=== PATIENT | female | born 1970 | race Hispanic/Latino ===

== ENCOUNTER 2022-08-10 10:31 | Day surgery (SDC) | payer OTHER ==
[2022-08-10] VITALS (7 sets, daily range): BP systolic 104–121; BP diastolic 58–76
[~2022-08-10] VITALS: Ht 167.6 cm; Wt 124.7 kg
[~2022-08-10 10:31] MED LIST: CYCL5TAB PO; GLIP5TAB11 PO; LACT10SO95 PO; LORA10TA7 PO; OMEP20CA12 PO; ONDA4TAB10 PO; PROP10TA10 PO; SUCR1TAB2 PO; TRAM50TA4 PO
[2022-08-10] MEDS ORDERED: 0.9%NACL 1000ML 1,000 ML IV ONE (10:35)
[2022-08-10 10:52] LABS: HEMATOCRIT 40.7 % (36-48); MEAN CORPUSCULAR HEMOGLOBIN 28.6 pg (27.0-33.0); MEAN CORPUSCULAR HGB CONC 32.4 g/dL (32.0-36.0); MEAN CORPUSCULAR VOLUME 88.3 fL (79-99); PLATELET COUNT (AUTO) 59 K/uL (130-400); RED BLOOD CELL COUNT(AUTO) 4.61 MIL/uL (4.00-5.50); RED CELL DISTRIBUTION WIDTH 14.8 % (11.0-15.5); WHITE BLOOD COUNT (AUTO) 2.9 K/uL (4.8-10.8)
[2022-08-10 11:03] LABS: ALBUMIN 3.5 g/dL (3.5-5.0); CREATININE 0.6 mg/dL (0.5-1.5); POTASSIUM 3.8 mmol/L (3.5-5.1); TOTAL PROTEIN, SERUM 6.7 g/dL (6.0-8.3)
[2022-08-10 11:23] LABS: EOSINOPHILS % (MANUAL) 3 % (1-6); LYMPHOCYTES % (MANUAL) 34 % (22-44); MAN.DIFF COMMENT-IMPRESSION MANUAL DIFFERENTIAL; MONOCYTES % (MANUAL) 7 % (2-9); PLATELET MORPHOLOGY COMMENT DECREASED; SEGMENTED NEUTROPHILS % 56 % (40-70)
[2022-08-10 11:43] LABS: PROTHROMBIN TIME 10.9 SEC (9.6-11.6)
[2022-08-10 11:44] LABS: PARTIAL THROMBOPLASTIN TIME 26.2 SEC (26.3-35.5)
[2022-08-10] MEDS ORDERED: PROPOFOL 10 MG/ML 20ML VIAL IV ONE (12:42)
== END 2022-08-10 14:30 | disposition home or self-care (01) ==
LOC: ENDO 10:31 → DAH 10:31 → ENDO 14:30
PROVIDERS: ATTEND Internal Medicine Gastroenterology
DX: I85.10 Secondary esophageal varices without bleeding (principal); Z20.822 Contact with and (suspected) exposure to COVID-19; K76.6 Portal hypertension; K74.69 Other cirrhosis of liver; K31.89 Other diseases of stomach and duodenum; K21.00 Gastro-esophageal reflux disease with esophagitis, without bleeding; K64.1 Second degree hemorrhoids; K29.00 Acute gastritis without bleeding; K76.0 Fatty (change of) liver, not elsewhere classified; E11.9 Type 2 diabetes mellitus without complications; M06.9 Rheumatoid arthritis, unspecified; M79.7 Fibromyalgia; Z86.010 Personal history of colon polyps; M35.00 Sjogren syndrome, unspecified; Z79.899 Other long term (current) drug therapy; Z86.16 Personal history of COVID-19; Z79.01 Long term (current) use of anticoagulants; Z90.49 Acquired absence of other specified parts of digestive tract; Z98.890 Other specified postprocedural states; Z82.49 Family history of ischemic heart disease and other diseases of the circulatory system; Z83.3 Family history of diabetes mellitus; Z83.438 Family history of other disorder of lipoprotein metabolism and other lipidemia; Z72.89 Other problems related to lifestyle; Z88.8 Allergy status to other drugs, medicaments and biological substances
CPT/HCPCS: 87635; 43244; 80053; 85025; 85610; 85730; 82948; 81025; 36415; C9803; J7030; J2704; A4620; A4215 ×2; A4223; A4222; A4221; A4663; A4606

== ENCOUNTER 2023-08-16 09:49 | Day surgery (SDC) | payer OTHER ==
[2023-08-12 15:52] LABS: BASOPHILS # (AUTO) 0.01 K/uL (0.00-0.20); BASOPHILS % (AUTO) 0.4 % (0.0-5.0); EOSINOPHILS # (AUTO) 0.04 K/uL (0.00-0.70); EOSINOPHILS % (AUTO) 1.7 % (0.0-8.0); HEMATOCRIT 36.8 % (36-48); LYMPHOCYTES # (AUTO) 0.9 K/uL (1.0-4.8); LYMPHOCYTES % (AUTO) 36.1 % (21.0-51.0); MEAN CORPUSCULAR HGB CONC 33.2 g/dL (32.0-36.0); MEAN CORPUSCULAR VOLUME 90.4 fL (79-99); MONOCYTES # (AUTO) 0.2 K/uL (0.1-1.0); MONOCYTES % (AUTO) 8.7 % (3.0-13.0); NEUTROPHILS # (AUTO) 1.3 K/uL (1.8-7.7); NEUTROPHILS % (AUTO) 53.1 % (40.0-77.0); PLATELET COUNT (AUTO) 54 K/uL (130-400); RED BLOOD CELL COUNT(AUTO) 4.07 MIL/uL (4.00-5.50); RED CELL DISTRIBUTION WIDTH 14.9 % (11.0-15.5); WHITE BLOOD COUNT (AUTO) 2.4 K/uL (4.8-10.8)
[2023-08-12 15:57] LABS: INR 0.97 (0.85-1.15); PROTHROMBIN TIME 11.5 SEC (9.6-11.6)
[2023-08-12 15:58] LABS: PARTIAL THROMBOPLASTIN TIME 27.8 SEC (26.3-35.5)
[2023-08-12 16:09] LABS: ALANINE AMINOTRANSFERASE 42 U/L (12-78); ALBUMIN 3.7 g/dL (3.5-5.0); AMMONIA < 10 umol/L (11-32); ASPARTATE AMINOTRANSFERASE 43 U/L (10-37); CARBON DIOXIDE 31 mmol/L (21-32); CHLORIDE 103 mmol/L (101-111); CREATININE 0.7 mg/dL (0.5-1.0); GLOMERULAR FILTR. RATE CALC 103 mL/min (>90); GLUCOSE,RANDOM 168 mg/dL (70-105); POTASSIUM 4.4 mmol/L (3.5-5.1); SODIUM SERUM 138 mmol/L (136-145); TOTAL PROTEIN, SERUM 6.8 g/dL (6.0-8.3); UREA NITROGEN, BLOOD 10 mg/dL (7-18)
[2023-08-12 16:58] LABS: BAND NEUTROPHILS % (MANUAL) 2 % (0-2); LYMPHOCYTES % (MANUAL) 32 % (22-44); MONOCYTES % (MANUAL) 6 % (2-9); SEGMENTED NEUTROPHILS % 60 % (40-70); TOTAL CELLS COUNTED 100
[2023-08-12 16:59] LABS: MAN.DIFF COMMENT-IMPRESSION MANUAL DIFFERENTIAL; PLATELET MORPHOLOGY COMMENT DECREASED; WBC MORPHOLOGY CONSISTENT W/DIFF
[2023-08-16] VITALS (13 sets, daily range): BP systolic 106–144; BP diastolic 54–88; PULSE 60–82; RESP 15–17
[~2023-08-16] VITALS: Ht 167.6 cm; Wt 122.3 kg
[~2023-08-16 09:49] MED LIST changes: +0.9%NACL 1000ML 1,000 ML IV ONE; +BACL10TA PO; -CYCL5TAB PO; +FURO20TA4 PO; -GLIP5TAB11 PO; +GLIP5TAB15 PO; +MULT-1192 PO; -SUCR1TAB2 PO; +TIRZ7.5P SQ
[2023-08-16] MEDS ORDERED: LIDOCAINE PF 100MG/5ML (2%) SYRINGE 5ML ONE (14:23)
[2023-08-16] MEDS ORDERED: PROPOFOL 10 MG/ML 20ML VIAL IV ONE ×2 (14:23)
[2023-08-16] MEDS: METOCLOPRAMIDE 10 MG/2 ML VIAL ONE (14:59)
[2023-08-16] MEDS: ONDANSETRON 4MG INJ ONE (14:59)
== END 2023-08-16 16:25 | disposition home or self-care (01) ==
LOC: DAH 09:49 → ENDO 09:49
PROVIDERS: ATTEND Internal Medicine Gastroenterology
DX: K74.69 Other cirrhosis of liver (principal); K76.6 Portal hypertension; K31.89 Other diseases of stomach and duodenum; I85.10 Secondary esophageal varices without bleeding; R11.0 Nausea; R13.10 Dysphagia, unspecified; K29.50 Unspecified chronic gastritis without bleeding; R19.4 Change in bowel habit; K21.9 Gastro-esophageal reflux disease without esophagitis; E11.9 Type 2 diabetes mellitus without complications; R16.1 Splenomegaly, not elsewhere classified; I50.9 Heart failure, unspecified; M79.7 Fibromyalgia; Z90.49 Acquired absence of other specified parts of digestive tract; Z98.890 Other specified postprocedural states; Z86.010 Personal history of colon polyps; Z72.89 Other problems related to lifestyle
CPT/HCPCS: 80053; 84703; 82140; 85025; 85610; 85730; 82105; 36415; 43244; 82948 ×2; J7030 ×2; J2001; J2704 ×2; J2405; J2765; A4620; A4215; A4223; A7002; A4222; J3490

== ENCOUNTER 2023-09-13 08:49 | Day surgery (SDC) | payer OTHER ==
[~2023-09-13] VITALS: Ht 167.6 cm; Wt 122.5 kg
[2023-09-13] VITALS (15 sets, daily range): BP systolic 99–142; BP diastolic 33–76; PULSE 54–68; RESP 12–18
[~2023-09-13 08:49] MED LIST changes: -0.9%NACL 1000ML 1,000 ML IV ONE; +ONDA-243 PO; -ONDA4TAB10 PO
[2023-09-13 10:43] LABS: BASOPHILS # (AUTO) 0.01 K/uL (0.00-0.20); BASOPHILS % (AUTO) 0.5 % (0.0-5.0); EOSINOPHILS # (AUTO) 0.04 K/uL (0.00-0.70); EOSINOPHILS % (AUTO) 1.8 % (0.0-8.0); HEMATOCRIT 35.8 % (36-48); LYMPHOCYTES # (AUTO) 0.9 K/uL (1.0-4.8); LYMPHOCYTES % (AUTO) 38.6 % (21.0-51.0); MEAN CORPUSCULAR HGB CONC 33.5 g/dL (32.0-36.0); MEAN CORPUSCULAR VOLUME 89.5 fL (79-99); MONOCYTES # (AUTO) 0.2 K/uL (0.1-1.0); MONOCYTES % (AUTO) 7.3 % (3.0-13.0); NEUTROPHILS # (AUTO) 1.1 K/uL (1.8-7.7); NEUTROPHILS % (AUTO) 51.8 % (40.0-77.0); PLATELET COUNT (AUTO) 48 K/uL (130-400); RED CELL DISTRIBUTION WIDTH 14.1 % (11.0-15.5); WHITE BLOOD COUNT (AUTO) 2.2 K/uL (4.8-10.8)
[2023-09-13 10:51] LABS: CREATININE 0.6 mg/dL (0.5-1.0); POTASSIUM 3.9 mmol/L (3.5-5.1)
[2023-09-13 10:56] LABS: ALBUMIN 3.6 g/dL (3.5-5.0); BILIRUBIN,TOTAL 1.3 mg/dL (0.2-1.0); TOTAL PROTEIN, SERUM 6.6 g/dL (6.0-8.3)
[2023-09-13 11:03] LABS: INR 0.97 (0.85-1.15); PROTHROMBIN TIME 11.5 SEC (9.6-11.6)
[2023-09-13 11:20] LABS: EOSINOPHILS % (MANUAL) 1 % (1-6); LYMPHOCYTES % (MANUAL) 29 % (22-44); MAN.DIFF COMMENT-IMPRESSION MANUAL DIFFERENTIAL; MONOCYTES % (MANUAL) 5 % (2-9); PLATELET MORPHOLOGY COMMENT DECREASED; SEGMENTED NEUTROPHILS % 65 % (40-70); TOTAL CELLS COUNTED 100
[2023-09-13] MEDS: 0.9%NACL 1000ML 1,000 ML IV ONE (11:37)
[2023-09-13] MEDS ORDERED: LIDOCAINE PF 100MG/5ML (2%) SYRINGE 5ML ONE (13:43)
[2023-09-13] MEDS ORDERED: PROPOFOL 10 MG/ML 20ML VIAL IV ONE (13:43)
[2023-09-13] MEDS ORDERED: EPHEDRINE SULFATE 50 MG/ML AMPULE ONE (13:44)
[2023-09-13] MEDS ORDERED: ONDANSETRON 4MG INJ ONE (13:46)
[2023-09-13] MEDS ORDERED: LIDOCAINE HCL 2% VISCOUS 15 ML UDCUP PO STA (14:30)
[2023-09-13] MEDS: LIDOCAINE HCL 2% VISCOUS 15 ML UDCUP PO ONE (14:51)
== END 2023-09-13 16:15 | disposition home or self-care (01) ==
LOC: ENDO 08:49 → DAH 09:07 → ENDO 16:15
PROVIDERS: ATTEND Internal Medicine Gastroenterology
DX: K74.69 Other cirrhosis of liver (principal); K76.6 Portal hypertension; I85.10 Secondary esophageal varices without bleeding; K29.00 Acute gastritis without bleeding; R13.10 Dysphagia, unspecified; R16.1 Splenomegaly, not elsewhere classified; R19.4 Change in bowel habit; I25.10 Atherosclerotic heart disease of native coronary artery without angina pectoris; I50.9 Heart failure, unspecified; K21.9 Gastro-esophageal reflux disease without esophagitis; M79.7 Fibromyalgia; E11.9 Type 2 diabetes mellitus without complications; Z90.49 Acquired absence of other specified parts of digestive tract; Z98.890 Other specified postprocedural states; Z86.010 Personal history of colon polyps; Z86.16 Personal history of COVID-19; Z82.49 Family history of ischemic heart disease and other diseases of the circulatory system; Z83.3 Family history of diabetes mellitus; Z83.438 Family history of other disorder of lipoprotein metabolism and other lipidemia
CPT/HCPCS: 43244; 80053; 85025; 85610; 82948 ×2; 81025; 36415; J7030; J2001; J2704; J2405; A4620; A4215 ×2; A4223; A4657; A4222; A4221; A4663; A4606; J3490

== ENCOUNTER → 2023-12-23 | Outpatient (CLI) | payer OTHER, MEDICARE ==
[~2023-12-23] MED LIST changes: -OMEP20CA12 PO; -TIRZ7.5P SQ; -TRAM50TA4 PO
[2023-12-23 14:45] LABS: BASOPHILS # (AUTO) 0.01 K/uL (0.00-0.20); BASOPHILS % (AUTO) 0.4 % (0.0-5.0); EOSINOPHILS # (AUTO) 0.07 K/uL (0.00-0.70); EOSINOPHILS % (AUTO) 3.1 % (0.0-8.0); HEMATOCRIT 36.4 % (36-48); LYMPHOCYTES # (AUTO) 0.8 K/uL (1.0-4.8); MEAN CORPUSCULAR VOLUME 87.9 fL (79-99); MONOCYTES # (AUTO) 0.2 K/uL (0.1-1.0); NEUTROPHILS # (AUTO) 1.2 K/uL (1.8-7.7); NEUTROPHILS % (AUTO) 52.5 % (40.0-77.0); PLATELET COUNT (AUTO) 53 K/uL (130-400); RED BLOOD CELL COUNT(AUTO) 4.14 MIL/uL (4.00-5.50); RED CELL DISTRIBUTION WIDTH 13.9 % (11.0-15.5); WHITE BLOOD COUNT (AUTO) 2.3 K/uL (4.8-10.8)
[2023-12-23 14:55] LABS: INR 1.11 (0.85-1.15); PROTHROMBIN TIME 11.9 SEC (9.6-11.6)
[2023-12-23 14:56] LABS: PARTIAL THROMBOPLASTIN TIME 30.2 SEC (26.3-35.5)
[2023-12-23 15:09] LABS: ALANINE AMINOTRANSFERASE 37 U/L (12-78); ALBUMIN 3.5 g/dL (3.5-5.0); AMMONIA < 10 umol/L (11-32); ASPARTATE AMINOTRANSFERASE 41 U/L (10-37); BILIRUBIN,TOTAL 1.5 mg/dL (0.2-1.0); CARBON DIOXIDE 30 mmol/L (21-32); CHLORIDE 104 mmol/L (101-111); CREATININE 0.9 mg/dL (0.5-1.0); GLOMERULAR FILTR. RATE CALC 76 mL/min (>90); GLUCOSE,RANDOM 175 mg/dL (70-105); POTASSIUM 4.2 mmol/L (3.5-5.1); SODIUM SERUM 139 mmol/L (136-145); UREA NITROGEN, BLOOD 10 mg/dL (7-18)
[2023-12-23 15:58] LABS: BAND NEUTROPHILS % (MANUAL) 1 % (0-2); EOSINOPHILS % (MANUAL) 1 % (1-6); LYMPHOCYTES % (MANUAL) 39 % (22-44); MAN.DIFF COMMENT-IMPRESSION MANUAL DIFFERENTIAL; MONOCYTES % (MANUAL) 9 % (2-9); PLATELET MORPHOLOGY COMMENT MARKED DECREASE; REACTIVE LYMPHOCYTES 2 % (0-0); SEGMENTED NEUTROPHILS % 48 % (40-70); TOTAL CELLS COUNTED 100
== END | disposition home or self-care (01) ==
LOC: LAB 13:48
PROVIDERS: ATTEND Internal Medicine Gastroenterology
DX: K74.60 Unspecified cirrhosis of liver (principal)
CPT/HCPCS: 36415; 80053; 82105; 82140; 85025; 85610; 85730

== ENCOUNTER 2023-12-27 07:30 | Day surgery (SDC) | payer OTHER, MEDICARE ==
[2023-12-29] MEDS ORDERED: LEVE500T19 PO (16:17)
== END 2023-12-27 08:58 | disposition home or self-care (01) ==
LOC: ENDO 07:30 → DAH 07:30 → ENDO 08:58
PROVIDERS: ATTEND Internal Medicine Gastroenterology
DX: K74.60 Unspecified cirrhosis of liver (principal); I85.10 Secondary esophageal varices without bleeding; K76.6 Portal hypertension; Z53.8 Procedure and treatment not carried out for other reasons
CPT/HCPCS: 81025; 82948

== ENCOUNTER → 2024-02-10 | Outpatient (CLI) | payer OTHER, MEDICARE ==
[~2024-02-10] MED LIST changes: +LACT-451 PO; -LACT10SO95 PO; +LEVE500T19 PO
[2024-02-10 13:27] LABS: BASOPHILS # (AUTO) 0.01 K/uL (0.00-0.20); BASOPHILS % (AUTO) 0.5 % (0.0-5.0); EOSINOPHILS # (AUTO) 0.04 K/uL (0.00-0.70); EOSINOPHILS % (AUTO) 1.8 % (0.0-8.0); HEMATOCRIT 34.8 % (36-48); LYMPHOCYTES # (AUTO) 0.8 K/uL (1.0-4.8); LYMPHOCYTES % (AUTO) 34.7 % (21.0-51.0); MEAN CORPUSCULAR HEMOGLOBIN 29.4 pg (27.0-33.0); MEAN CORPUSCULAR HGB CONC 33.3 g/dL (32.0-36.0); MEAN CORPUSCULAR VOLUME 88.3 fL (79-99); MONOCYTES # (AUTO) 0.2 K/uL (0.1-1.0); MONOCYTES % (AUTO) 7.8 % (3.0-13.0); NEUTROPHILS # (AUTO) 1.2 K/uL (1.8-7.7); NEUTROPHILS % (AUTO) 55.2 % (40.0-77.0); PLATELET COUNT (AUTO) 54 K/uL (130-400); RED BLOOD CELL COUNT(AUTO) 3.94 MIL/uL (4.00-5.50); RED CELL DISTRIBUTION WIDTH 14.6 % (11.0-15.5); WHITE BLOOD COUNT (AUTO) 2.2 K/uL (4.8-10.8)
[2024-02-10 13:32] LABS: ALBUMIN 3.5 g/dL (3.5-5.0); BILIRUBIN,TOTAL 1.7 mg/dL (0.2-1.0); CREATININE 0.7 mg/dL (0.5-1.0); INR 1.08 (0.85-1.15); POTASSIUM 4.7 mmol/L (3.5-5.1); PROTHROMBIN TIME 11.6 SEC (9.6-11.6); TOTAL PROTEIN, SERUM 6.4 g/dL (6.0-8.3)
[2024-02-10 13:33] LABS: PARTIAL THROMBOPLASTIN TIME 27.7 SEC (26.3-35.5)
[2024-02-10 15:17] LABS: LYMPHOCYTES % (MANUAL) 35 % (22-44); MAN.DIFF COMMENT-IMPRESSION MANUAL DIFFERENTIAL; MONOCYTES % (MANUAL) 5 % (2-9); PLATELET MORPHOLOGY COMMENT DECREASED; REACTIVE LYMPHOCYTES 2 % (0-0); SEGMENTED NEUTROPHILS % 58 % (40-70); TOTAL CELLS COUNTED 100
== END | disposition home or self-care (01) ==
LOC: LAB 12:26
PROVIDERS: ATTEND Internal Medicine Gastroenterology
DX: K74.60 Unspecified cirrhosis of liver (principal); R13.10 Dysphagia, unspecified
CPT/HCPCS: 36415; 80053; 82105; 82140; 85025; 85610; 85730

== ENCOUNTER 2024-03-13 07:28 | Day surgery (SDC) | payer OTHER, MEDICARE ==
[~2024-03-13] VITALS: Ht 167.6 cm; Wt 122.5 kg
[2024-03-13] VITALS (10 sets, daily range): BP systolic 97–177; BP diastolic 47–71; PULSE 48–81; RESP 15–17; TEMP 97–97.6
[~2024-03-13 07:28] MED LIST changes: -LEVE500T19 PO
[2024-03-13 08:29] LABS: BASOPHILS # (AUTO) 0.01 K/uL (0.00-0.20); BASOPHILS % (AUTO) 0.4 % (0.0-5.0); EOSINOPHILS # (AUTO) 0.05 K/uL (0.00-0.70); HEMATOCRIT 36.1 % (36-48); IMMATURE GRANULOCYTE ABSOLUTE 0.01 K/uL (0-1); LYMPHOCYTES # (AUTO) 0.7 K/uL (1.0-4.8); LYMPHOCYTES % (AUTO) 29.4 % (21.0-51.0); MEAN CORPUSCULAR HEMOGLOBIN 29.4 pg (27.0-33.0); MEAN CORPUSCULAR VOLUME 89.1 fL (79-99); MONOCYTES # (AUTO) 0.3 K/uL (0.1-1.0); MONOCYTES % (AUTO) 10.5 % (3.0-13.0); NEUTROPHILS # (AUTO) 1.4 K/uL (1.8-7.7); NEUTROPHILS % (AUTO) 57.3 % (40.0-77.0); PLATELET COUNT (AUTO) 61 K/uL (130-400); RED BLOOD CELL COUNT(AUTO) 4.05 MIL/uL (4.00-5.50); RED CELL DISTRIBUTION WIDTH 13.6 % (11.0-15.5); WHITE BLOOD COUNT (AUTO) 2.5 K/uL (4.8-10.8)
[2024-03-13 08:38] LABS: INR 1.1 (0.85-1.15); PROTHROMBIN TIME 11.8 SEC (9.6-11.6)
[2024-03-13 08:39] LABS: PARTIAL THROMBOPLASTIN TIME 28.1 SEC (26.3-35.5)
[2024-03-13 08:40] LABS: ALANINE AMINOTRANSFERASE 41 U/L (12-78); ALBUMIN 3.5 g/dL (3.5-5.0); AMMONIA < 10 umol/L (11-32); ASPARTATE AMINOTRANSFERASE 44 U/L (10-37); BILIRUBIN,TOTAL 1.9 mg/dL (0.2-1.0); CARBON DIOXIDE 31 mmol/L (21-32); CHLORIDE 107 mmol/L (101-111); CREATININE 0.8 mg/dL (0.5-1.0); GLOMERULAR FILTR. RATE CALC 87 mL/min (>90); GLUCOSE,RANDOM 123 mg/dL (70-105); SODIUM SERUM 142 mmol/L (136-145); TOTAL PROTEIN, SERUM 6.8 g/dL (6.0-8.3); UREA NITROGEN, BLOOD 11 mg/dL (7-18)
[2024-03-13 09:57] LABS: BAND NEUTROPHILS % (MANUAL) 4 % (0-2); LYMPHOCYTES % (MANUAL) 28 % (22-44); MAN.DIFF COMMENT-IMPRESSION MANUAL DIFFERENTIAL; MONOCYTES % (MANUAL) 4 % (2-9); SEGMENTED NEUTROPHILS % 64 % (40-70); TOTAL CELLS COUNTED 50
[2024-03-13 10:03] LABS: PLATELET MORPHOLOGY COMMENT MARKED DECREASE; WBC MORPHOLOGY TOXIC GRANULATION 2+
[2024-03-13] MEDS: 0.9%NACL 1000ML 1,000 ML IV ONE (11:32)
[2024-03-13] MEDS ORDERED: FAMOTIDINE 20MG VIAL IV ONE (13:09)
[2024-03-13] MEDS ORDERED: metoCLOPRAmide 10 MG/2 ML VIAL ONE (13:09)
[2024-03-13] MEDS ORDERED: ondanSETRON 4MG INJ ONE (13:22)
[2024-03-13] MEDS ORDERED: proPOFol 10 MG/ML 20ML VIAL IV ONE ×2 (13:22→13:55)
[2024-03-13] MEDS ORDERED: GLYCOPYRROLATE 0.2 MG/ML 5 ML VIAL ONE (13:33)
== END 2024-03-13 15:23 | disposition home or self-care (01) ==
LOC: ENDO 07:28
PROVIDERS: ATTEND Internal Medicine Gastroenterology
DX: Z09 Encounter for follow-up examination after completed treatment for conditions other than malignant neoplasm (principal); K63.5 Polyp of colon; K74.60 Unspecified cirrhosis of liver; I85.10 Secondary esophageal varices without bleeding; I50.9 Heart failure, unspecified; M06.9 Rheumatoid arthritis, unspecified; M79.7 Fibromyalgia; R07.0 Pain in throat; K76.6 Portal hypertension; K29.70 Gastritis, unspecified, without bleeding; Z86.0100 Personal history of colon polyps, unspecified; G43.909 Migraine, unspecified, not intractable, without status migrainosus; Z88.6 Allergy status to analgesic agent; Z88.8 Allergy status to other drugs, medicaments and biological substances; Z98.890 Other specified postprocedural states; Z88.1 Allergy status to other antibiotic agents; Z79.899 Other long term (current) drug therapy; Z53.8 Procedure and treatment not carried out for other reasons
CPT/HCPCS: 43244; 80053; 84703; 82140; 85025; 85610; 85730; 82948 ×2; 82105; 36415; 88305; 45380; J3490 ×2; J7030; J2704 ×2; J2405; J2765; A4620; A4215 ×2; A4223; A4222; A4221; A4663; A4606

== ENCOUNTER 2024-07-03 07:20 | Day surgery (SDC) | payer OTHER, MEDICARE ==
[~2024-07-03] VITALS: Ht 167.6 cm; Wt 122.5 kg
[~2024-07-03 07:20] MED LIST changes: -BACL10TA PO; +SITA50TA PO
[2024-07-03 10:58] VITALS: BP 108/55; PULSE 77; RESP 18; TEMP 98
[2024-07-03] MEDS ORDERED: proPOFol 10 MG/ML 20ML VIAL IV ONE (11:48)
[2024-07-03] MEDS ORDERED: ondanSETRON 4MG INJ ONE (11:49)
[2024-07-03 11:51] LABS: ALBUMIN 3.3 g/dL (3.5-5.0); BILIRUBIN,TOTAL 1.5 mg/dL (0.2-1.0); CREATININE 0.6 mg/dL (0.5-1.0); POTASSIUM 4.4 mmol/L (3.5-5.1); TOTAL PROTEIN, SERUM 6.3 g/dL (6.0-8.3)
[2024-07-03] MEDS: 0.9%NACL 1000ML 1,000 ML IV ONE (11:52)
[2024-07-03 12:03] LABS: BASOPHILS # (AUTO) 0.01 K/uL (0.00-0.20); BASOPHILS % (AUTO) 0.6 % (0.0-5.0); EOSINOPHILS # (AUTO) 0.04 K/uL (0.00-0.70); EOSINOPHILS % (AUTO) 2.6 % (0.0-8.0); HEMATOCRIT 31.5 % (36-48); LYMPHOCYTES # (AUTO) 0.6 K/uL (1.0-4.8); LYMPHOCYTES % (AUTO) 39.1 % (21.0-51.0); MEAN CORPUSCULAR HGB CONC 33.7 g/dL (32.0-36.0); MEAN CORPUSCULAR VOLUME 86.3 fL (79-99); MONOCYTES # (AUTO) 0.1 K/uL (0.1-1.0); MONOCYTES % (AUTO) 7.7 % (3.0-13.0); NEUTROPHILS # (AUTO) 0.8 K/uL (1.8-7.7); PLATELET COUNT (AUTO) 48 K/uL (130-400); RED BLOOD CELL COUNT(AUTO) 3.65 MIL/uL (4.00-5.50); RED CELL DISTRIBUTION WIDTH 14.3 % (11.0-15.5); WHITE BLOOD COUNT (AUTO) 1.6 K/uL (4.8-10.8)
[2024-07-03 12:12] LABS: INR 1.11 (0.85-1.15); PROTHROMBIN TIME 11.6 SEC (9.6-11.6)
[2024-07-03 12:46] LABS: PLATELET MORPHOLOGY COMMENT MARKED DECREASE
--- NOTE | 2024-07-03 13:00 | NUR ---
PROCEDURE CANCEL PER DR GHOSH DUE WBC 1.6. INSTRUCTION GIVEN TO SEE PRIMARY AND ONCOLOGIST. IV DISCONTINUE, DISMISS AMBULATORY.
== END 2024-07-03 13:00 | disposition home or self-care (01) ==
LOC: ENDO 07:20 → DAH 07:20 → ENDO 13:00
PROVIDERS: ATTEND Internal Medicine Gastroenterology
DX: K74.60 Unspecified cirrhosis of liver (principal); I85.10 Secondary esophageal varices without bleeding; K76.6 Portal hypertension; E11.9 Type 2 diabetes mellitus without complications; M06.9 Rheumatoid arthritis, unspecified; I11.0 Hypertensive heart disease with heart failure; I50.9 Heart failure, unspecified; M79.7 Fibromyalgia; Z88.6 Allergy status to analgesic agent; Z88.8 Allergy status to other drugs, medicaments and biological substances; Z90.49 Acquired absence of other specified parts of digestive tract; Z98.890 Other specified postprocedural states; Z95.5 Presence of coronary angioplasty implant and graft; Z79.899 Other long term (current) drug therapy; Z88.1 Allergy status to other antibiotic agents; Z53.8 Procedure and treatment not carried out for other reasons
CPT/HCPCS: 80053; 36415; 85025; 85610; J7030; J2405; J2704; J3490

== ENCOUNTER → 2025-01-07 | Outpatient (CLI) | payer OTHER, MEDICARE ==
[2025-01-07 09:47] LABS: IMMATURE GRANULOCYTE ABSOLUTE 0.01 K/uL (0-1); NUCLEATED RED BLOOD CELLS 0.0 % (0.0-0.19); PLATELET COUNT (AUTO) 46 K/uL (130-400); RED BLOOD CELL COUNT(AUTO) 4.09 MIL/uL (4.00-5.50); RED CELL DISTRIBUTION WIDTH 14.5 % (11.0-15.5); WHITE BLOOD COUNT (AUTO) 1.7 K/uL (4.8-10.8)
[2025-01-07 09:56] LABS: INR 1.08 (0.85-1.15)
[2025-01-07 09:58] LABS: ASPARTATE AMINOTRANSFERASE 33.0 U/L (10-37); CREATININE 0.8 mg/dL (0.5-1.0); GLOMERULAR FILTR. RATE CALC 86.0 mL/min (>90); GLUCOSE,RANDOM 278.0 mg/dL (70-105); SODIUM SERUM 140.0 mmol/L (136-145); TOTAL PROTEIN, SERUM 6.3 g/dL (6.0-8.3); UREA NITROGEN, BLOOD 10.0 mg/dL (7-18)
[2025-01-07 10:26] LABS: PLATELET MORPHOLOGY COMMENT DECREASED
== END | disposition home or self-care (01) ==
LOC: LAB 08:37
PROVIDERS: ATTEND Internal Medicine Gastroenterology
DX: K74.60 Unspecified cirrhosis of liver (principal)
CPT/HCPCS: 36415; 80053; 82105; 82140; 85025; 85610; 85730

== ENCOUNTER 2025-01-08 07:54 | Day surgery (SDC) | payer OTHER, MEDICARE ==
[~2025-01-08 07:54] MED LIST changes: +0.9%NACL 1000ML 1,000 ML IV ONE
--- NOTE | 2025-01-08 11:00 | NUR ---
PROCEDURE CANCELLED PER DR. GHOSH REQUEST D/T ABNORMAL LABS. PT TO RESCHEDULE
== END 2025-01-08 11:02 | disposition home or self-care (01) ==
LOC: ENDO 07:54 → DAH 07:54 → ENDO 11:02
PROVIDERS: ATTEND Internal Medicine Gastroenterology
DX: K74.60 Unspecified cirrhosis of liver (principal); Z53.8 Procedure and treatment not carried out for other reasons; K76.6 Portal hypertension; I85.00 Esophageal varices without bleeding
CPT/HCPCS: 84703; 36415; J7030

== ENCOUNTER → 2025-02-04 | Outpatient (CLI) | payer OTHER, MEDICARE ==
[~2025-02-04] MED LIST changes: -0.9%NACL 1000ML 1,000 ML IV ONE
[2025-02-04 12:44] LABS: IMMATURE GRANULOCYTE ABSOLUTE 0.00 K/uL (0-1); NUCLEATED RED BLOOD CELLS 0.0 % (0.0-0.19); PLATELET COUNT (AUTO) 53 K/uL (130-400); RED BLOOD CELL COUNT(AUTO) 4.00 MIL/uL (4.00-5.50); RED CELL DISTRIBUTION WIDTH 14.5 % (11.0-15.5); WHITE BLOOD COUNT (AUTO) 2.0 K/uL (4.8-10.8)
[2025-02-04 12:48] LABS: PLATELET MORPHOLOGY COMMENT DECREASED
[2025-02-04 12:56] LABS: ASPARTATE AMINOTRANSFERASE 35.0 U/L (10-37); CREATININE 0.7 mg/dL (0.5-1.0); GLOMERULAR FILTR. RATE CALC 101.0 mL/min (>90); GLUCOSE,RANDOM 232.0 mg/dL (70-105); SODIUM SERUM 139.0 mmol/L (136-145); TOTAL PROTEIN, SERUM 6.7 g/dL (6.0-8.3); UREA NITROGEN, BLOOD 9.0 mg/dL (7-18)
[2025-02-04 13:12] LABS: INR 1.12 (0.85-1.15)
== END | disposition home or self-care (01) ==
LOC: LAB 12:00
PROVIDERS: ATTEND Internal Medicine Gastroenterology
DX: K74.60 Unspecified cirrhosis of liver (principal)
CPT/HCPCS: 36415; 80053; 82105; 82140; 85025; 85610

== ENCOUNTER 2025-02-05 07:58 | Day surgery (SDC) | payer OTHER, MEDICARE ==
[~2025-02-05] VITALS: Ht 167.6 cm; Wt 122.5 kg
[2025-02-05] VITALS (10 sets, daily range): BP systolic 100–124; BP diastolic 52–67; PULSE 65–80; RESP 15–18; TEMP 97.1–97.8
[2025-02-05] MEDS: 0.9%NACL 1000ML 1,000 ML IV ONE (10:28)
[2025-02-05] MEDS ORDERED: LIDOCAINE PF 100MG/5ML (2%) SYRINGE 5ML ONE (12:25)
== END 2025-02-05 14:04 | disposition home or self-care (01) ==
LOC: ENDO 07:58 → DAH 07:58 → ENDO 14:04
PROVIDERS: ATTEND Internal Medicine Gastroenterology
DX: K74.60 Unspecified cirrhosis of liver (principal); I85.10 Secondary esophageal varices without bleeding; K76.6 Portal hypertension; E11.9 Type 2 diabetes mellitus without complications; E78.5 Hyperlipidemia, unspecified; K29.70 Gastritis, unspecified, without bleeding; K21.00 Gastro-esophageal reflux disease with esophagitis, without bleeding; K29.00 Acute gastritis without bleeding; K31.89 Other diseases of stomach and duodenum; D50.9 Iron deficiency anemia, unspecified; M06.9 Rheumatoid arthritis, unspecified; I50.9 Heart failure, unspecified; Z86.0100 Personal history of colon polyps, unspecified; Z86.73 Personal history of transient ischemic attack (TIA), and cerebral infarction without residual deficits; Z79.4 Long term (current) use of insulin; Z79.899 Other long term (current) drug therapy; M79.7 Fibromyalgia; Z20.822 Contact with and (suspected) exposure to COVID-19; Z88.1 Allergy status to other antibiotic agents; Z88.6 Allergy status to analgesic agent; Z88.8 Allergy status to other drugs, medicaments and biological substances; Z90.49 Acquired absence of other specified parts of digestive tract; Z98.890 Other specified postprocedural states
CPT/HCPCS: 43244; 82948 ×2; J0690; J7030; J2003; J2704; A4620; A4215 ×2; A4223; A4222; A4221; A4663; A4606; J3490

== ENCOUNTER 2025-02-19 20:06 | Emergency (ER) | payer OTHER, MEDICARE ==
[~2025-02-19] VITALS: Ht 167.6 cm; Wt 119.3 kg
[~2025-02-19 20:06] MED LIST changes: -PROP10TA10 PO
--- NOTE | 2025-02-19 20:24 | EKG ---
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
[2025-02-19 20:51] LABS: IMMATURE GRANULOCYTE ABSOLUTE 0.00 K/uL (0-1); NUCLEATED RED BLOOD CELLS 0.0 % (0.0-0.19); PLATELET COUNT (AUTO) 50 K/uL (130-400); RED BLOOD CELL COUNT(AUTO) 3.94 MIL/uL (4.00-5.50); RED CELL DISTRIBUTION WIDTH 14.6 % (11.0-15.5); WHITE BLOOD COUNT (AUTO) 1.6 K/uL (4.8-10.8)
[2025-02-19 20:59] VITALS: BP 122/62; PULSE 76; RESP 18; TEMP 98.7; O2SAT 98
[2025-02-19 21:03] LABS: CREATININE 0.9 mg/dL (0.5-1.0); GLOMERULAR FILTR. RATE CALC 75.0 mL/min (>90); GLUCOSE,RANDOM 315.0 mg/dL (70-105); SODIUM SERUM 138.0 mmol/L (136-145); UREA NITROGEN, BLOOD 11.0 mg/dL (7-18)
[2025-02-19 21:19] LABS: SARS-CoV-2, RNA, NAAT NEGATIVE SARS CoV-2 (NEGATIVE)
[2025-02-19 21:26] LABS: INFLUENZA TYPE A Negative For Type A (NEGATIVE); INFLUENZA TYPE B Negative For Type B (NEGATIVE)
[2025-02-19 21:43] LABS: ADD UA MICROSCOPIC YES; APPEARANCE,URINE CLEAR (CLEAR); GLUCOSE, URINE (UA) >=1000 mg/dL (NEGATIVE); LEUKOCYTE ESTERASE ,URINE NEGATIVE Leu/uL (NEGATIVE); NITRATE,URINE NEGATIVE (NEGATIVE); OCCULT BLOOD,URINE NEGATIVE (NEGATIVE)
[2025-02-19 21:47] LABS: SQUAMOUS EPITHELIAL CELL,UR RARE /HPF (0-2)
--- NOTE | 2025-02-19 21:54 | HMCIMG ---
EXAM: CR Chest, 1 View. CLINICAL HISTORY: sob COMPARISON: None provided. FINDINGS: LUNGS: The lungs show no infiltrate or other acute finding. PLEURAL SPACES: No pleural effusion or pneumothorax. MEDIASTINUM: Cardiac size and mediastinal contours within normal limits. BONES: No acute osseous abnormality. IMPRESSION: No acute cardiopulmonary pathology is evident. /[place]
--- NOTE | 2025-02-19 21:57 | ERN ---
ED Note History of Present Illness Stated Complaint: C/O HIGH SUGAR Chief Complaint: Blood Sugar Problem Time Seen by MD: 20:11 Time Seen by Midlevel: 20:11 Dictation: 54 Year old female with a history of liver cirrhosis, CVA, diabetes, fibromyalgia and RA coming in with complaints of uncontrolled blood sugar. Patient states she has had an ongoing problem with her blood sugar for the last couple of months. States her PCP's the aware and is currently has a on Januvia, glipizide in [facility], however patient states she has not taking any of these medications for the last three days. Patient has a also chills, fever and frequent urination. Allergies: Coded Allergies: aspirin (Unverified Allergy, Unknown, 06/21/22) doxycycline (Unverified Allergy, Unknown, 06/21/22) levofloxacin (Unverified Allergy, Unknown, 06/21/22) Home Meds Reported Medications Sitagliptin Phosphate (Januvia) 50 Mg Tablet, 50 MG PO DAILY, TAB 07/02/24 Loratadine (Loratadine) 10 Mg Tablet, 10 MG PO AM, TAB 08/15/23 Furosemide (Furosemide) 20 Mg Tablet, 20 MG PO AM, TAB 08/15/23 Ondansetron (Ondansetron Odt) 4 Mg Tab.rapdis, 4 MG PO DAILY, TAB 06/13/23 Multivitamin (Multi-Vitamin Daily) 1 Each Tablet, 1 EACH PO DAILY, TAB 06/13/23 Lactulose (Lactulose) 10 Gram/15 Ml (15 Ml) Solution, 10 GM PO BID PRN for CONSTIPATION, ML 06/21/22 Glipizide (Glipizide) 5 Mg Tablet, 5 MG PO BIDAC, TAB 06/21/22 Past Medical History Past Medical History: CVA, Diabetes-Type II, Fibromyalgia, Other Additional Past Medical Hx: RA, ESOPHAGEAL VARICES Surgical History: Cholecystectomy Review of System Dictation Constitutional: Chills Eyes: Negative for injury, pain,redness, and discharge ENT: Negative for injury,pain or swelling Cardiovascular: Negative for chest pain, palpitations, and edema Respiratory: Negative for shortness of breath, cough, and wheezing, Abdomen/GI: Negative for abdominal pain, nausea, vomiting, diarrhea, and constipation Back: Negative for injury and pain : Negative for injury, bleeding and discharge MS/Extremity: Negative for injury and deformity Skin: Negative for rash, and discoloration Neuro: Negative for headache, weakness, numbness, tingling, and seizure Psych: Negative for suicide ideation, homicidal ideation, and hallucinations Review of Systems: was completed Initial Vital Sign VS Vital Signs Date Time Temp Pulse Resp B/P (MAP) Pulse Ox O2 Delivery O2 Flow Rate FiO2 02/19/25 20:07 97.9 85 20 143/76 98 Room Air 02/19/25 20:59 0 21 Physical Exam Dictation General: awake, alert, NAD Head/Face: Normocephalic, atraumatic Eyes: PERRL, EOMI, vision at baseline ENT: oral cavity clear, TMs clear, no signs of infection Neck: Trachea midline, supple, no nuchal rigidity Cardiovascular: RRR, normal S1/S2, No MRGs, no JVD Respiratory: CTAB, no respiratory distress, No rales or wheezes Abdomen: Soft, non-tender, non-distended, normal bowel sounds, no guarding or rebound. Skin: Warm, dry, normal turgor, no rash MS/Extremity: Pulses equal, no cyanosis, neurovascular intact, FROM Neuro: COAx4, GCS 15, strength 5/5, CN 2-12 intact, normal cerebellar exam, normal gait, Psych: Normal behavior, mood, and affect normal Results (Laboratory/Radiology) Laboratory/Radiology Laboratory Tests Test 02/19/25 20:11 02/19/25 20:38 02/19/25 20:53 02/19/25 21:27 Whole Blood Glucose 320 MG/DL (70-110) H White Blood Count 1.6 K/uL (4.8-10.8) L Red Blood Count 3.94 MIL/uL (4.00-5.50) L Hemoglobin 11.9 g/dL (12.0-16.0) L Hematocrit 34.9 % (36-48) L Mean Corpuscular Volume 88.6 fL (79-99) Mean Corpuscular Hemoglobin 30.2 pg (27.0-33.0) Mean Corpuscular Hemoglobin Concent 34.1 g/dL (32.0-36.0) Red Cell Distribution Width 14.6 % (11.0-15.5) Platelet Count 50 K/uL (130-400) L Mean Platelet Volume 10.0 fL (7.5-10.5) Immature Granulocyte % (Auto) 0.0 % (0-1) Neutrophils (%) (Auto) 54.3 % (40.0-77.0) Lymphocytes (%) (Auto) 35.4 % (21.0-51.0) Monocytes (%) (Auto) 7.9 % (3.0-13.0) Eosinophils (%) (Auto) 1.8 % (0.0-8.0) Basophils (%) (Auto) 0.6 % (0.0-5.0) Neutrophils # (Auto) 0.9 K/uL (1.8-7.7) L Lymphocytes # (Auto) 0.6 K/uL (1.0-4.8) L Monocytes # (Auto) 0.1 K/uL (0.1-1.0) Eosinophils # (Auto) 0.03 K/uL (0.00-0.70) Basophils # (Auto) 0.01 K/uL (0.00-0.20) Absolute Immature Granulocyte (auto 0.00 K/uL (0-1) Nucleated Red Blood Cells 0.0 % (0.0-0.19) White Cell Morphology Comment See comments Platelet Morphology Comment See comments Sodium Level 138 mmol/L (136-145) Potassium Level 3.8 mmol/L (3.5-5.1) Chloride Level 102 mmol/L (101-111) Carbon Dioxide Level 30 mmol/L (21-32) Blood Urea Nitrogen 11 mg/dL (7-18) Creatinine 0.9 mg/dL (0.5-1.0) Glomerular Filtration Rate Calc 75 mL/min (>90) Random Glucose 315 mg/dL (70-105) H Total Calcium 8.9 mg/dL (8.5-10.1) Ammonia 37 umol/L (11-32) H B-Type Natriuretic Peptide 24 pg/mL (0-100) Influenza Type A Antigen Negative For Type A Influenza Type B Antigen Negative For Type B SARS-CoV-2, RNA, NAAT NEGATIVE SARS CoV-2 Urine Color YELLOW (YELLOW) Urine Appearance CLEAR (CLEAR) Urine pH 6.5 (5.0-8.0) Urine Specific [place] 1.024 (1.001-1.031) Urine Protein NEGATIVE mg/dL (NEGATIVE) Urine Glucose (UA) >=1000 mg/dL (NEGATIVE) H Urine Ketones NEGATIVE mg/dL (NEGATIVE) Urine Occult Blood NEGATIVE (NEGATIVE) Urine Nitrate NEGATIVE (NEGATIVE) Urine Bilirubin NEGATIVE mg/dL (NEGATIVE) Urine Urobilinogen 0.2 mg/dL (0.2-1.0) Urine Leukocyte Esterase NEGATIVE [place]/uL Urine RBC 0-1 /HPF (0-1) Urine WBC 0-1 /HPF (0-1) Urine Squamous Epithelial Cells RARE /HPF (0-2) Urine Bacteria RARE /HPF (None Seen) Labs Reviewed?: Yes ED Course ED Course Orders Procedure Category Date Status Time Cbc With Differential LAB 02/19/25 Complete 20:18 Basic Metabolic Panel LAB 02/19/25 Complete 20:18 Urinalysis Profile LAB 02/19/25 Complete 20:18 12 Lead Ekg Tracing- EKG 02/19/25 Complete Technical 20:18 Ammonia LAB 02/19/25 Complete 20:47 B-Type Natriuretic LAB 02/19/25 Complete Peptide 20:47 Chest 1vw RAD 02/19/25 Resulted 20:47 Covid Rna Naat LAB 02/19/25 Complete 20:47 Influenza Type A & B, LAB 02/19/25 Complete Rapid 20:47 0.9%Nacl 1000ml (Ns PHA 02/19/25 In Process 1000ml) 21:31 Insulin Regular, PHA 02/19/25 Complete Human 3ml (Humulin R 21:31 Current Medications Medications (Trade) Dose Ordered Sig/Berenice Route PRN Reason Start Time Stop Time Status Last Admin Dose Admin Insulin Human Regular (humuLIN R 100 UNIT/ML 3ML) 8 unit ONCE STAT IV 02/19/25 21:31 02/19/25 21:33 DC 02/19/25 22:35 Sodium Chloride 1,000 ml @ 500 mls/hr Q2H STAT IV 02/19/25 21:31 02/19/25 23:30 02/19/25 22:27 Vital Signs Date Time Temp Pulse Resp B/P (MAP) Pulse Ox O2 Delivery O2 Flow Rate FiO2 02/19/25 20:59 98.8 76 18 122/62 98 Room Air* 0 21 02/19/25 20:07 97.9 85 20 143/76 98 Room Air Medical Decision Making MDM MDM: Differential diagnosis: Hyperglycemia, DKA, uncontrolled diabetes Rationale: Tests considered and ordered secondary to shared decision making include: Previous outside records reviewed: Old ER visits. Risk of complication and/or morbidity or mortality of patient management: None Medications-Per medication reconciliation Need for hospitalization: Patient does not meet criteria for hospitalization. Need for emergency major/minor surgery: No There are no social concerns with this patient. Prescription drug management Prescriptions will include symptomatic care Patient's prior external medical records from other ER visits were reviewed by me as indicated. Prior testing and results from previous visits were reviewed. Prior tests were taken into account with medical decision making and resource utilization, independent historian/historians were used to obtain complete medical history. I independently interpreted the test that were performed, results were reviewed by me and considered findings on radiology if ordered. Medical management and examination interpretation discussions were had by me with other qualified healthcare professionals as indicated for the patient's care. Patient is stable advised she should follow up with PCP for further evaluation of her blood sugars. Patient states she will not follow up with her PCP states she does not want to take medications. Patient advised on complications she could have if does not take care of her diabetes. DX & DISP Disposition: Discharge Departure Impression: Primary Impression: Uncontrolled diabetes mellitus Additional Impressions: Non-compliant behavior, Elevated blood sugar Condition: Stable Additional Instructions: You need to follow up with your primary doctor or find a new doctor if you do not like yours anymore. You need to get better control of your diabetes. FOLLOW-UP WITH YOUR PCP IN 24-72 HOURS AND IN THE EVENT IF SYMPTOMS WORSEN OR AN EMERGENCY OVERNIGHT REPORT TO THE ED IMMEDIATELY Referrals: MISSY SAMSON (PCP) DIONICIO TAN CNP Feb 19, 2025 21:57 CAMRYN VIEYRA Feb 19, 2025 23:00
[2025-02-19] MEDS: 0.9%NACL 1000ML 1,000 ML IV STA (22:27)
== END 2025-02-20 00:16 | disposition home or self-care (01) ==
LOC: EDH 20:06
DX: E11.65 Type 2 diabetes mellitus with hyperglycemia (principal); M79.7 Fibromyalgia; Z79.84 Long term (current) use of oral hypoglycemic drugs; Z20.822 Contact with and (suspected) exposure to COVID-19; Z86.73 Personal history of transient ischemic attack (TIA), and cerebral infarction without residual deficits; Z88.1 Allergy status to other antibiotic agents; Z88.6 Allergy status to analgesic agent; Z90.49 Acquired absence of other specified parts of digestive tract; Z91.199 Patient's noncompliance with other medical treatment and regimen due to unspecified reason
CPT/HCPCS: 99285; 96374; 71045; 87635; 80048; 83880; 82140; 85025; 87804 ×2; 82948; 81001; 36415; 93005; J1815; J7030